=== PATIENT | male | born 1975 | race Two or more races ===

== ENCOUNTER 2018-09-15 07:47 | Inpatient (IN) | payer MEDICAID ==
[~2018-09-15] VITALS: Ht 172.7 cm; Wt 111.6 kg
[2018-09-15 07:54] VITALS: Ht 172.7 cm; Wt 111.6 kg
[2018-09-15 08:44] LABS: BASOPHIL % 0.6 % (0-2); PLATELET COUNT 184 x10^3mcL (130-400); RED CELL DISTRIBUTION WIDTH 12.4 % (11.5-14.5)
[2018-09-15 08:55] LABS: CALCIUM 9.6 mg/dL (8.5-10.1); CARBON DIOXIDE 23.5 mmol/L (21-32); CHLORIDE SERUM 96 mmol/L (98-107); CREATININE SERUM 0.9 mg/dL (0.7-1.3); GFR1 > 60 mL/min; GLUCOSE SERUM 291 mg/dL (74-106); POTASSIUM SERUM 4.1 mmol/L (3.5-5.1); SODIUM SERUM 135 mmol/L (136-145)
[2018-09-15 09:18] LABS: TOTAL PROTEIN, SERUM 8.3 g/dL (6.4-8.2)
[2018-09-15 09:19] LABS: ALKALINE PHOSPHATASE 99 U/L (46-116); ALT/SGPT 82 U/L (16-63); AST/SGOT 40 U/L (15-37); BILIRUBIN TOTAL 1.25 mg/dL (0.20-1.00)
[2018-09-15 13:49] VITALS: BP 172/96
[2018-09-15 16:05] VITALS: BP 159/110
[2018-09-15 16:45] VITALS: BP 163/100
[2018-09-15 17:38] LABS: microscopic required? YES; urine erythrocyte NEGATIVE (NEGATIVE)
[2018-09-15 17:54] LABS: AMPHETAMINE QUAL UR POSITIVE (See below)
[2018-09-15 20:51] VITALS: BP 147/92
[2018-09-16 05:33] VITALS: BP 123/81
[2018-09-16 06:31] LABS: BASOPHIL % 0.3 % (0-2); PLATELET COUNT 164 x10^3mcL (130-400); RED CELL DISTRIBUTION WIDTH 12.6 % (11.5-14.5)
[2018-09-16 06:56] LABS: ALKALINE PHOSPHATASE 67 U/L (46-116); ALT/SGPT 226 U/L (16-63); AST/SGOT 222 U/L (15-37); BILIRUBIN TOTAL 0.76 mg/dL (0.20-1.00); CALCIUM 8.5 mg/dL (8.5-10.1); CARBON DIOXIDE 23.7 mmol/L (21-32); CHLORIDE SERUM 104 mmol/L (98-107); CREATININE SERUM 0.8 mg/dL (0.7-1.3); GFR1 > 60 mL/min; POTASSIUM SERUM 4.5 mmol/L (3.5-5.1); SODIUM SERUM 137 mmol/L (136-145); TOTAL PROTEIN, SERUM 6.9 g/dL (6.4-8.2)
[2018-09-16 07:06] LABS: MAGNESIUM 2.1 mg/dL (1.8-2.4); PHOSPHOROUS 3.2 mg/dL (2.5-4.9)
[2018-09-16 07:08] LABS: CHOLESTEROL/HDL RATIO 4.5
[2018-09-16 07:12] LABS: ALBUMIN 3.1 g/dL (3.4-5.0)
[2018-09-16 07:36] LABS: GLUCOSE SERUM 192 mg/dL (74-106)
[2018-09-16 09:10] VITALS: BP 155/87
[2018-09-16 12:42] VITALS: BP 133/90
[2018-09-16] MEDS ORDERED: FLA500 PO (12:48)
[2018-09-16] MEDS ORDERED: LEVAQUIN750 MG PO (12:49)
[2018-09-16 14:04] VITALS: BP 133/90
[2018-09-16 16:34] VITALS: BP 140/90
== END 2018-09-16 18:15 | disposition home or self-care (01) | DRG 263 ==
LOC: ED 07:47 → DU 12:05 → MU 12:05 → DU 20:16 → MU 23:59 → DU 09-16 02:49
PROVIDERS: Emergency Medicine; Surgery; ADMIT Internal Medicine
PROC: 0FT44ZZ Resection of Gallbladder, Percutaneous Endoscopic Approach (ICD-10-PCS; principal; 2018-09-15 16:00)
DX: K81.0 Acute cholecystitis (principal); K65.3 Choleperitonitis; E87.1 Hypo-osmolality and hyponatremia; E11.65 Type 2 diabetes mellitus with hyperglycemia; K70.0 Alcoholic fatty liver; K81.1 Chronic cholecystitis; F15.10 Other stimulant abuse, uncomplicated; I10 Essential (primary) hypertension; Z68.37 Body mass index [BMI] 37.0-37.9, adult; Z87.891 Personal history of nicotine dependence; Z79.84 Long term (current) use of oral hypoglycemic drugs
CPT/HCPCS: 82962; 83880; 85378; J0330; J0696; J1170; J1650; J1815; J2250; J2270; J2405; J2704; J2710; J3010; J3480; J3490; J7030; Q0092; Q9967